=== PATIENT | female | born 1965 | race African-American/Black ===

== ENCOUNTER → 2016-12-31 | Outpatient (CLI) | payer OTHER ==
--- NOTE | 2017-01-01 02:16 | REP ---
Clinical: Neuralgia. Technique: AP, lateral, bilateral oblique, and coned-down views. Findings: Alignment and lordosis is maintained. The vertebral bodies including transverse process and spinous processes are intact and normal. There is no evidence for acute fracture / compression injury or subluxation. No evidence for spondylolysis or spondylolisthesis. No significant degenerative change is noted. Impression: Normal lumbosacral spine radiograph series. Signed by Robert Monroy MD 01/01/2017 02:09 A
--- NOTE | 2017-01-01 02:26 | REP ---
Clinical: Occipital neuralgia. Technique: AP, lateral, flexion/extension, bilateral oblique, and open-mouth views. Findings: Alignment and lordosis is maintained. There is no evidence for acute fracture / compression injury or subluxation. Moderate multilevel degenerative changes including anterior spurring/osteophytosis, endplate sclerosis and disc space narrowing primarily involving the C5-6, C4-5, and C6-7 levels. Oblique views demonstrate patent neural foramen. Open mouth view demonstrates normal C1-C2 articulation and odontoid process. Impression: Moderate multilevel degenerative changes. Signed by Robert Monroy MD 01/01/2017 02:18 A
== END | disposition home or self-care (01) ==
LOC: M RAD 10:44
PROVIDERS: ATTEND Neurological Surgery
DX: M54.81 Occipital neuralgia (principal); M47.892 Other spondylosis, cervical region; M47.896 Other spondylosis, lumbar region

== ENCOUNTER 2017-01-18 20:53 | Emergency (ER) | payer OTHER ==
[2017-01-18] MEDS ORDERED: IPRATROPIUM 0.5MG/ALBUTEROL 2.5MG INH SOL UD 3ML (DUONEB)(J7620) As Ordered ONE (22:15)
[2017-01-18] MEDS ORDERED: IBUPROFEN 800 MG TAB As Ordered ONE (22:30)
--- NOTE | 2017-01-18 23:38 | EDDOCDS ---
Nurse's Notes [facility] Name: Evelin Hamilton Age: 51 yrs Sex: Female : 1965 Arrival Date: 01/18/2017 Time: 20:53 Bed PD Private MD: Robert Caro Diagnosis: Acute bronchitis;Asthma Presentation: 01/18 21:14 Presenting complaint: Patient states: Sinus pain and pressure, cough, shortness of lf1 breath with stiff neck and back for two weeks. Was seen in [place] ED and reports that she is still having the same symptoms. Has been on an inhaler and antibiotics. Pt states she is not having cold and flu symptoms and refuses to wear a mask. Adult Sepsis Screening: The patient does not have new or worsening altered mentation. Patient's respiratory rate is less than 22. Systolic blood pressure is greater than 100. Patient has a qSOFA score of 0- Negative Sepsis Screen. Suicide/Homicide risk assessment- the patient denies having any suicidal and/or homicidal ideations and does not present with any other emotional, behavioral or mental health complaints. Status: Patient is not a equipment services associate or dependent. Transition of care: patient was not received from another setting of care. 21:14 Acuity: CAROLYN Level 4 lf1 21:14 Method Of Arrival: Walkin/Carried/Asstd lf1 Triage Assessment: 21:24 General: Appears uncomfortable, Behavior is restless. Pain: Location: neck, back Pain lf1 currently is 6 out of 10 on a pain scale. Neurological: Level of Consciousness is awake, alert. Respiratory: Respiratory effort is even, unlabored, Reports shortness of breath cough that is. GI: Denies nausea, vomiting. Derm: Skin is normal. 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 amoxicillin 875 mg Oral tab 1 tab every 12 hours (Last dose: 01/18/2017) 2. Tessalon Perles 100 mg Oral cap 1 cap 3 times per day 3. advair inhaler pt reports she is using it five times a day because she doesn't have her regular inhaler 4. Hydrochlorothiazide Unknown Oral 5. Gabapentin Oral Unknown 6. ventolin inhaler - PMHx: Hypertension; Asthma; Bronchitis; arm pain; - PSHx: none; - Social history: Smoking status: Patient states former smoker of tobacco. No barriers to communication noted, The patient speaks fluent Albanian, Speaks appropriately for age, Preferred Language: Albanian. - Family history: Not pertinent. - : The pt / caregiver states he / she is not on anticoagulants. Unable to Verify Home Med List with the patient / caregiver. Note Pt agitated in triage, does not want to give meds or history. - Exposure Risk Screening:: None identified. Screenin:37 Screening information is obtained from the patient. Fall risk: No risks identified. cz Assistance ADL's: requires no assistance with activities of daily living. Abuse/DV Screen: The patient / caregiver reports he/she is: not in a situation that causes fear, pain or injury. Nutritional screening: No deficits noted. home support is adequate. Assessment: 22:32 Adult Sepsis Screening: The patient does not have new or worsening altered mentation. dsf Patient's respiratory rate is less than 22. Systolic blood pressure is greater than 100. Patient has a qSOFA score of 0- Negative Sepsis Screen. General: Appears in no apparent distress, comfortable, Behavior is appropriate for age, cooperative. Neurological: Level of Consciousness is awake, alert. Cardiovascular: Capillary refill < 3 seconds. Respiratory: Airway is patent Respiratory effort is even, unlabored, Respiratory pattern is regular, symmetrical. Derm: Skin is pink, warm & dry. Vital Signs: 20:56 BP 168 / 88; Pulse 83; Resp 19; Temp 97.2(O); Pulse Ox 99% on R/A; Weight 92.53 kg (R); lr2 Height 5 ft. 4 in. (162.56 cm) (R); Pain 10/10; 23:36 BP 158 / 96; Pulse 96; Resp 16; Temp 96(T); Pulse Ox 96% on R/A; cz 20:56 Body Mass Index 35.02 (92.53 kg, 162.56 cm) lr2 Vitals: 20:56 Log In Time: January 18, 2017 at 20:53. lr2 ED Course: 20:55 Patient visited by Marylin Denise. lr2 20:55 Patient moved to Waiting lr2 20:57 Robert Caro is Private Physician. lr2 20:57 Patient moved to Pre RCE lr2 21:19 Triage Initiated lf1 21:35 Patient moved to Triage 3 ar3 21:52 Shane Hinson PA is PHCP. mo1 21:52 Dima Coronado DO is Attending Physician. mo1 21:56 Patient visited by Shane Hinson PA. mo1 22:04 Patient moved to PD2 / dsf 22:32 Patient visited by Zeinab Johansen RN. dsf 23:29 Robert Caro is Referral Physician. mo1 23:29 [facility] Payment Agreement was scanned into [employer] and attached to record. zo 23:37 The patient / caregiver is instructed regarding the plan of care and ED course. cz 23:37 No IV's were initiated during this patient's visit. No procedures done that require cz assistance. Administered Medications: 22:19 Drug: Albuterol-Ipratropium 3 ml [ipratropium-albuterol 0.5 mg-3 mg(2.5 mg base)/3 mL lf2 nebulization soln (3 mL)] Route: Inhalation; 22:32 Drug: Ibuprofen 800 mg [ibuprofen 800 mg tablet (1 tabs)] Route: PO; dsf RT: 22:19 Initial Med Neb Given as ordered Patient was instructed and evaluated on procedure lf2 Patient tolerated procedure well without adverse effect. Oxygen is room air. Respiratory: Airway is patent Respiratory effort is even, unlabored, Respiratory pattern is regular symmetrical, Breath sounds are clear bilaterally. Breath sounds are diminished bilaterally. Reports shortness of breath on exertion. Order Results: There are currently no results for this order. Outcome: 23:29 Discharge ordered by Provider. mo1 23:37 Discharge Assessment: Patient awake, alert and oriented x 3. No cognitive and/or cz functional deficits noted. Patient verbalized understanding of disposition instructions. patient administered narcotics - no. The following High Risk Discharge criteria are identified: None. Discharged to home ambulatory. Condition: improved. Discharge instructions given to patient, Instructed on discharge instructions, follow up and referral plans. medication usage, Demonstrated understanding of instructions, medications, Pt was receptive of discharge instructions/ teaching. Prescriptions given X 2, Work note provided to patient. No special radiology studies were completed. Property :Personal belongings accompany Pt. 23:38 Patient left the ED. cz Signatures: Ifeanyi Reynoso RN RN cz Rosita Sage Lisa,RN RN lf1 Ashwini Lazaro, HEAT AND FROST INSULATOR HEAT AND FROST INSULATOR ar3 Zeinab Johansen,RN RN dsf Shane Hinson PA PA mo1 Ginger Brown,RT RT lf2 Marylin Denise lr2 MTDD
--- NOTE | 2017-01-18 23:38 | EDDOCDS ---
Physician Documentation [facility] Name: Evelin Hamilton Age: 51 yrs Sex: Female : 1965 Arrival Date: 01/18/2017 Time: 20:53 Bed PD Private MD: Robert Caro Disposition: 01/18/17 23:29 Discharged to Home/Self Care. Impression: Acute bronchitis, Asthma. - Condition is Stable. - Discharge Instructions: Acute Bronchitis, Asthma, Adult. - Prescriptions for Zithromax Z- Chema 250 mg Oral Tablet - take 1 tablet by ORAL route as directed for 5 days Day 1- take two tablets once. Day 2, 3, 4 , 5 take one tablet once daily.; 6 tablet. Albuterol Sulfate 90 mcg/actuation Inhalation HFA Aerosol Inhaler - inhale 2 puff by INHALATION route every 4 hours As needed; 1 Inhaler. - Work Release Form - 2 day, Medication Reconciliation, Local Pharmacy Hours form. - Follow up: Robert Caro; When: Call to arrange an appointment; Reason: Recheck today's complaints, Continuance of care. - Problem is new. - Symptoms have improved. Historical: - Allergies: No known drug Allergies; - Home Meds: 1. amoxicillin 875 mg Oral tab 1 tab every 12 hours (Last dose: 01/18/2017) 2. Tessalon Perles 100 mg Oral cap 1 cap 3 times per day 3. advair inhaler pt reports she is using it five times a day because she doesn't have her regular inhaler 4. Hydrochlorothiazide Unknown Oral 5. Gabapentin Oral Unknown 6. ventolin inhaler - PMHx: Hypertension; Asthma; Bronchitis; arm pain; - PSHx: none; - Social history: Smoking status: Patient states former smoker of tobacco. No barriers to communication noted, The patient speaks fluent Swedish, Speaks appropriately for age, Preferred Language: Swedish. - Family history: Not pertinent. - : The pt / caregiver states he / she is not on anticoagulants. Unable to Verify Home Med List with the patient / caregiver. Note Pt agitated in triage, does not want to give meds or history. - Exposure Risk Screening:: None identified. 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 4 in. (162.56 cm) (R); Pain 10/10; 23:36 BP 158 / 96; Pulse 96; Resp 16; Temp 96(T); Pulse Ox 96% on R/A; cz 20:56 Body Mass Index 35.02 (92.53 kg, 162.56 cm) lr2 MDM: 22:03 Albuterol-Ipratropium 3 ml Inhalation once ordered. mo1 22:03 Call Respiratory ordered. mo1 22:04 Chest, 2 View (pa\E\lat) Ordered. EDMS 22:04 Ibuprofen 800 mg PO once ordered. mo1 22:07 Call Respiratory complete. ar3 23:03 Financial registration complete. hs2 23:29 [facility] Payment Agreement was scanned into [employer] and attached to record. zo Administered Medications: 22:19 Drug: Albuterol-Ipratropium 3 ml [ipratropium-albuterol 0.5 mg-3 mg(2.5 mg base)/3 mL lf2 nebulization soln (3 mL)] Route: Inhalation; 22:32 Drug: Ibuprofen 800 mg [ibuprofen 800 mg tablet (1 tabs)] Route: PO; dsf Signatures: Dispatcher MedHost EDMS Ifeanyi Reynoso RN RN cz Rosita Sage LisaRN RN lf1 Ashwini Lazaro, FLIGHT OPERATIONS MANAGER FLIGHT OPERATIONS MANAGER ar3 Shane Hinson PA PA mo1 Chhaya Scherer, Reg Reg hs2 Zeinab Johansen RN dsf Ginger Brown RT lf2 The chart was reviewed and I authenticate all verbal orders and agree with the evaluation and treatment provided.Attachments: 23:29 [facility] Payment Agreement zo MTDD
--- NOTE | 2017-01-19 10:04 | REP ---
TWO VIEW CHEST: Two views of the chest are performed and compared to prior study of 05/15/2016. There is mild bibasilar fibrotic change without evidence of acute infiltrate or pulmonary edema. The heart is normal in size. The mediastinal silhouette is unremarkable and unchanged. There are mild degenerative changes of the spine. IMPRESSION: No acute pulmonary disease. Signed by Darian Childers MD 01/19/2017 04:52 P
--- NOTE | 2017-01-21 00:39 | EDDOCDS ---
Physician Documentation [facility] Name: Evelin Hamilton Age: 51 yrs Sex: Female : 1965 Arrival Date: 01/18/2017 Time: 20:53 Bed PD Private MD: Robert Caro Disposition: 01/18/17 23:29 Discharged to Home/Self Care. Impression: Acute bronchitis, Asthma. - Condition is Stable. - Discharge Instructions: Acute Bronchitis, Asthma, Adult. - Prescriptions for Zithromax Z- Chema 250 mg Oral Tablet - take 1 tablet by ORAL route as directed for 5 days Day 1- take two tablets once. Day 2, 3, 4 , 5 take one tablet once daily.; 6 tablet. Albuterol Sulfate 90 mcg/actuation Inhalation HFA Aerosol Inhaler - inhale 2 puff by INHALATION route every 4 hours As needed; 1 Inhaler. - Work Release Form - 2 day, Medication Reconciliation, Local Pharmacy Hours form. - Follow up: Robert Caro; When: Call to arrange an appointment; Reason: Recheck today's complaints, Continuance of care. - Problem is new. - Symptoms have improved. Historical: - Allergies: No known drug Allergies; - Home Meds: 1. amoxicillin 875 mg Oral tab 1 tab every 12 hours (Last dose: 01/18/2017) 2. Tessalon Perles 100 mg Oral cap 1 cap 3 times per day 3. advair inhaler pt reports she is using it five times a day because she doesn't have her regular inhaler 4. Hydrochlorothiazide Unknown Oral 5. Gabapentin Oral Unknown 6. ventolin inhaler - PMHx: Hypertension; Asthma; Bronchitis; arm pain; - PSHx: none; - Social history: Smoking status: Patient states former smoker of tobacco. No barriers to communication noted, The patient speaks fluent Greenlandic, Speaks appropriately for age, Preferred Language: Greenlandic. - Family history: Not pertinent. - : The pt / caregiver states he / she is not on anticoagulants. Unable to Verify Home Med List with the patient / caregiver. Note Pt agitated in triage, does not want to give meds or history. - Exposure Risk Screening:: None identified. 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 4 in. (162.56 cm) (R); Pain 10/10; 23:36 BP 158 / 96; Pulse 96; Resp 16; Temp 96(T); Pulse Ox 96% on R/A; cz 20:56 Body Mass Index 35.02 (92.53 kg, 162.56 cm) lr2 MDM: 22:03 Albuterol-Ipratropium 3 ml Inhalation once ordered. mo1 22:03 Call Respiratory ordered. mo1 22:04 Chest, 2 View (pa\E\lat) Ordered. EDMS 22:04 Ibuprofen 800 mg PO once ordered. mo1 22:07 Call Respiratory complete. ar3 23:03 Financial registration complete. hs2 23:29 [facility] Payment Agreement was scanned into [employer] and attached to record. zo Administered Medications: 22:19 Drug: Albuterol-Ipratropium 3 ml [ipratropium-albuterol 0.5 mg-3 mg(2.5 mg base)/3 mL lf2 nebulization soln (3 mL)] Route: Inhalation; 22:32 Drug: Ibuprofen 800 mg [ibuprofen 800 mg tablet (1 tabs)] Route: PO; dsf Signatures: Dispatcher MedHost EDMS Ifeanyi Reynoso RN RN cz Rosita Sage LisaRN RN lf1 Ashwini Lazaro, SOYBEAN GROWER SOYBEAN GROWER ar3 Shane Hinson PA PA mo1 Chhaya Scherer, Reg Reg hs2 Zeinab Johansen RN dsf Ginger Brown RT lf2 The chart was reviewed and I authenticate all verbal orders and agree with the evaluation and treatment provided.Attachments: 23:29 [facility] Payment Agreement zo Chart Complete MTDD
--- NOTE | 2017-01-21 00:39 | EDDOCDS ---
Nurse's Notes [facility] Name: Evelin Hamilton Age: 51 yrs Sex: Female : 1965 Arrival Date: 01/18/2017 Time: 20:53 Bed PD Private MD: Robert Caro Diagnosis: Acute bronchitis;Asthma Presentation: 01/18 21:14 Presenting complaint: Patient states: Sinus pain and pressure, cough, shortness of lf1 breath with stiff neck and back for two weeks. Was seen in [place] ED and reports that she is still having the same symptoms. Has been on an inhaler and antibiotics. Pt states she is not having cold and flu symptoms and refuses to wear a mask. Adult Sepsis Screening: The patient does not have new or worsening altered mentation. Patient's respiratory rate is less than 22. Systolic blood pressure is greater than 100. Patient has a qSOFA score of 0- Negative Sepsis Screen. Suicide/Homicide risk assessment- the patient denies having any suicidal and/or homicidal ideations and does not present with any other emotional, behavioral or mental health complaints. Status: Patient is not a environmental service aide or dependent. Transition of care: patient was not received from another setting of care. 21:14 Acuity: CAROLYN Level 4 lf1 21:14 Method Of Arrival: Walkin/Carried/Asstd lf1 Triage Assessment: 21:24 General: Appears uncomfortable, Behavior is restless. Pain: Location: neck, back Pain lf1 currently is 6 out of 10 on a pain scale. Neurological: Level of Consciousness is awake, alert. Respiratory: Respiratory effort is even, unlabored, Reports shortness of breath cough that is. GI: Denies nausea, vomiting. Derm: Skin is normal. 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 amoxicillin 875 mg Oral tab 1 tab every 12 hours (Last dose: 01/18/2017) 2. Tessalon Perles 100 mg Oral cap 1 cap 3 times per day 3. advair inhaler pt reports she is using it five times a day because she doesn't have her regular inhaler 4. Hydrochlorothiazide Unknown Oral 5. Gabapentin Oral Unknown 6. ventolin inhaler - PMHx: Hypertension; Asthma; Bronchitis; arm pain; - PSHx: none; - Social history: Smoking status: Patient states former smoker of tobacco. No barriers to communication noted, The patient speaks fluent Namibian, Speaks appropriately for age, Preferred Language: Namibian. - Family history: Not pertinent. - : The pt / caregiver states he / she is not on anticoagulants. Unable to Verify Home Med List with the patient / caregiver. Note Pt agitated in triage, does not want to give meds or history. - Exposure Risk Screening:: None identified. Screenin:37 Screening information is obtained from the patient. Fall risk: No risks identified. cz Assistance ADL's: requires no assistance with activities of daily living. Abuse/DV Screen: The patient / caregiver reports he/she is: not in a situation that causes fear, pain or injury. Nutritional screening: No deficits noted. home support is adequate. Assessment: 22:32 Adult Sepsis Screening: The patient does not have new or worsening altered mentation. dsf Patient's respiratory rate is less than 22. Systolic blood pressure is greater than 100. Patient has a qSOFA score of 0- Negative Sepsis Screen. General: Appears in no apparent distress, comfortable, Behavior is appropriate for age, cooperative. Neurological: Level of Consciousness is awake, alert. Cardiovascular: Capillary refill < 3 seconds. Respiratory: Airway is patent Respiratory effort is even, unlabored, Respiratory pattern is regular, symmetrical. Derm: Skin is pink, warm & dry. Vital Signs: 20:56 BP 168 / 88; Pulse 83; Resp 19; Temp 97.2(O); Pulse Ox 99% on R/A; Weight 92.53 kg (R); lr2 Height 5 ft. 4 in. (162.56 cm) (R); Pain 10/10; 23:36 BP 158 / 96; Pulse 96; Resp 16; Temp 96(T); Pulse Ox 96% on R/A; cz 20:56 Body Mass Index 35.02 (92.53 kg, 162.56 cm) lr2 Vitals: 20:56 Log In Time: January 18, 2017 at 20:53. lr2 ED Course: 20:55 Patient visited by Marylin Denise. lr2 20:55 Patient moved to Waiting lr2 20:57 Robert Caro is Private Physician. lr2 20:57 Patient moved to Pre RCE lr2 21:19 Triage Initiated lf1 21:35 Patient moved to Triage 3 ar3 21:52 Shane Hinson PA is PHCP. mo1 21:52 Dima Coronado DO is Attending Physician. mo1 21:56 Patient visited by Shane Hinson PA. mo1 22:04 Patient moved to PD dsf 22:32 Patient visited by Zeinab Johansen RN. dsf 23:29 Robert Caro is Referral Physician. mo1 23:29 [facility] Payment Agreement was scanned into [employer] and attached to record. zo 23:37 The patient / caregiver is instructed regarding the plan of care and ED course. cz 23:37 No IV's were initiated during this patient's visit. No procedures done that require cz assistance. 01/19 10:42 Chest, 2 View (pa\E\lat) Returned. EDMS Administered Medications: 01/18 22:19 Drug: Albuterol-Ipratropium 3 ml [ipratropium-albuterol 0.5 mg-3 mg(2.5 mg base)/3 mL lf2 nebulization soln (3 mL)] Route: Inhalation; 22:32 Drug: Ibuprofen 800 mg [ibuprofen 800 mg tablet (1 tabs)] Route: PO; dsf RT: 22:19 Initial Med Neb Given as ordered Patient was instructed and evaluated on procedure lf2 Patient tolerated procedure well without adverse effect. Oxygen is room air. Respiratory: Airway is patent Respiratory effort is even, unlabored, Respiratory pattern is regular symmetrical, Breath sounds are clear bilaterally. Breath sounds are diminished bilaterally. Reports shortness of breath on exertion. Order Results: Radiology Order: Chest, 2 View (pa\E\lat) Test: Chest, 2 View (pa\E\lat) REASON FOR EXAMINATION: Cough; TWO VIEW CHEST:; ; Two views of the chest are performed and compared to prior study of 05/15/2016.; There is mild bibasilar fibrotic change without evidence of acute infiltrate or; pulmonary edema. The heart is normal in size. The mediastinal silhouette is; unremarkable and unchanged. There are mild degenerative changes of the spine.; ; IMPRESSION:; ; No acute pulmonary disease.; ; ; Signed by; Darian Childers MD 01/19/2017 04:52 P; Outcome: 23:29 Discharge ordered by Provider. mo1 23:37 Discharge Assessment: Patient awake, alert and oriented x 3. No cognitive and/or cz functional deficits noted. Patient verbalized understanding of disposition instructions. patient administered narcotics - no. The following High Risk Discharge criteria are identified: None. Discharged to home ambulatory. Condition: improved. Discharge instructions given to patient, Instructed on discharge instructions, follow up and referral plans. medication usage, Demonstrated understanding of instructions, medications, Pt was receptive of discharge instructions/ teaching. Prescriptions given X 2, Work note provided to patient. No special radiology studies were completed. Property :Personal belongings accompany Pt. 23:38 Patient left the ED. cz Signatures: Dispatcher MedHost EDMS Ifeanyi Reynoso RN RN Rosita Castillo Lisa, RN RN lf1 Ashwini Lazaro, ENGINEERING MATHEMATICIAN ENGINEERING MATHEMATICIAN ar3 Zeinab JohansenRN RN dsf Shane Hinson, FARRUKH PA mo1 Ginger Brown,RT RT lf2 Marylin Denise lr2 Chart Complete ÁNGEL
--- NOTE | 2017-01-21 00:39 | EDDOCDS ---
Physician Documentation [facility] Name: Evelin Hamilton Age: 51 yrs Sex: Female : 1965 Arrival Date: 01/18/2017 Time: 20:53 Bed PD Private MD: Robert Caro Disposition: 01/18/17 23:29 Discharged to Home/Self Care. Impression: Acute bronchitis, Asthma. - Condition is Stable. - Discharge Instructions: Acute Bronchitis, Asthma, Adult. - Prescriptions for Zithromax Z- Chema 250 mg Oral Tablet - take 1 tablet by ORAL route as directed for 5 days Day 1- take two tablets once. Day 2, 3, 4 , 5 take one tablet once daily.; 6 tablet. Albuterol Sulfate 90 mcg/actuation Inhalation HFA Aerosol Inhaler - inhale 2 puff by INHALATION route every 4 hours As needed; 1 Inhaler. - Work Release Form - 2 day, Medication Reconciliation, Local Pharmacy Hours form. - Follow up: Robert Caro; When: Call to arrange an appointment; Reason: Recheck today's complaints, Continuance of care. - Problem is new. - Symptoms have improved. Historical: - Allergies: No known drug Allergies; - Home Meds: 1. amoxicillin 875 mg Oral tab 1 tab every 12 hours (Last dose: 01/18/2017) 2. Tessalon Perles 100 mg Oral cap 1 cap 3 times per day 3. advair inhaler pt reports she is using it five times a day because she doesn't have her regular inhaler 4. Hydrochlorothiazide Unknown Oral 5. Gabapentin Oral Unknown 6. ventolin inhaler - PMHx: Hypertension; Asthma; Bronchitis; arm pain; - PSHx: none; - Social history: Smoking status: Patient states former smoker of tobacco. No barriers to communication noted, The patient speaks fluent Korean, Speaks appropriately for age, Preferred Language: Korean. - Family history: Not pertinent. - : The pt / caregiver states he / she is not on anticoagulants. Unable to Verify Home Med List with the patient / caregiver. Note Pt agitated in triage, does not want to give meds or history. - Exposure Risk Screening:: None identified. 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 4 in. (162.56 cm) (R); Pain 10/10; 23:36 BP 158 / 96; Pulse 96; Resp 16; Temp 96(T); Pulse Ox 96% on R/A; cz 20:56 Body Mass Index 35.02 (92.53 kg, 162.56 cm) lr2 MDM: 22:03 Albuterol-Ipratropium 3 ml Inhalation once ordered. mo1 22:03 Call Respiratory ordered. mo1 22:04 Chest, 2 View (pa\E\lat) Ordered. EDMS 22:04 Ibuprofen 800 mg PO once ordered. mo1 22:07 Call Respiratory complete. ar3 23:03 Financial registration complete. hs2 23:29 [facility] Payment Agreement was scanned into [employer] and attached to record. zo Administered Medications: 22:19 Drug: Albuterol-Ipratropium 3 ml [ipratropium-albuterol 0.5 mg-3 mg(2.5 mg base)/3 mL lf2 nebulization soln (3 mL)] Route: Inhalation; 22:32 Drug: Ibuprofen 800 mg [ibuprofen 800 mg tablet (1 tabs)] Route: PO; dsf Signatures: Dispatcher [employer] EDMS Ifeanyi Reynoso RN RN cz Rosita Sage LisaRN RN lf1 Ashwini Lazaro, CATH LAB CATH LAB ar3 Shane Hinson PA PA mo1 Chhaya Scherer, Reg Reg hs2 Zeinab Johansen RN dsf Ginger Brown RT lf2 The chart was reviewed and I authenticate all verbal orders and agree with the evaluation and treatment provided.Attachments: 23:29 [facility] Payment Agreement zo Chart Complete MTDD
== END 2017-01-18 23:38 | disposition home or self-care (01) ==
LOC: M ED 20:53
DX: J45.901 Unspecified asthma with (acute) exacerbation (principal); J20.9 Acute bronchitis, unspecified; I10 Essential (primary) hypertension; Z87.891 Personal history of nicotine dependence; Z79.899 Other long term (current) drug therapy

== ENCOUNTER → 2017-02-02 | Outpatient (REF) | payer OTHER | LOC: M SFHCLERA 11:10 | PROVIDERS: ATTEND Family Medicine | DX: Z11.1 Encounter for screening for respiratory tuberculosis (principal) ==

== ENCOUNTER 2017-02-20 22:58 | Emergency (ER) | payer OTHER ==
[~2017-02-20] VITALS: Ht 162.6 cm; Wt 90.7 kg
[2017-02-20] MEDS ORDERED: AMLODIPINE (23:25)
[2017-02-20] MEDS ORDERED: HYDR12.55 (23:25)
[2017-02-20] MEDS ORDERED: ALBU17IN (23:25)
[2017-02-20] MEDS ORDERED: GABA600T PO (23:25)
[2017-02-20] MEDS ORDERED: PROBCAP4 PO (23:25)
[2017-02-20] MEDS ORDERED: ADV250INH (23:25)
[2017-02-20] MEDS ORDERED: methylPREDNISolone INJ 125 MG/2 ML VIAL (J2930) IV ONE (23:30)
[2017-02-20] MEDS ORDERED: NS 500 ML IV ONE (23:30)
[2017-02-20] MEDS ORDERED: FAMOTIDINE IV BAG 20 MG in APPROPRIATE DILUENT 1 EA IV ONE (23:30)
[2017-02-20] MEDS ORDERED: diphenhydrAMINE INJ 50MG/ML VIAL (J1200) IV ONE (23:30)
[2017-02-20] MEDS ORDERED: ASPIRIN 81 MG CHEW TABLET PO ONE (23:30)
[2017-02-20 23:44] LABS: BASO % 0.3 % (0.0-1.0); EOS # 0.3 K/mm3 (0.0-0.50); EOS % 3.6 % (0.0-3.0); LARGE UNSTAINED CELL # 0.1 K/mm3 (0.0-0.4); LARGE UNSTAINED CELL % 1.6 % (0.0-4.0); LYMPH # 2.5 K/mm3 (1.5-4.5); LYMPH % 30.9 % (24.0-44.0); MEAN CORPUSCULAR HEMOGLOBIN 29.1 pg (27.0-33.0); MEAN CORPUSCULAR VOLUME 90.9 fl (80.0-96.0); MONO # 0.4 K/mm3 (0.0-0.8); MONO % 4.9 % (0.0-5.0); NEUTROPHILS # 4.6 K/mm3 (1.8-7.7); NEUTROPHILS % 58.8 % (36.0-66.0); PLATELET COUNT, AUTOMATED 301 k/mm3 (150-450); RED CELL DISTRIBUTION WIDTH 13.4 % (11.5-14.5); WHITE BLOOD COUNT 7.7 K/mm3 (4.0-10.0)
[2017-02-20 23:53] LABS: ANION GAP 5 MEQ/L (8-16); BLOOD UREA NITROGEN 17 MG/DL (7-18); CALCIUM LEVEL 9.3 MG/DL (8.5-10.1); CARBON DIOXIDE LEVEL 33 MEQ/L (21-32); CHLORIDE LEVEL 104 MEQ/L (98-107); CREATININE FOR GFR 0.92 MG/DL (0.55-1.02); GLOMERULAR FILTRATION RATE > 60.0 (>51); GLUCOSE, FASTING 103 MG/DL (70-105); POTASSIUM SERUM 3.5 MEQ/L (3.5-5.1); SODIUM LEVEL 142 MEQ/L (136-145)
[2017-02-21] MEDS ORDERED: IPRATROPIUM 0.5MG/ALBUTEROL 2.5MG INH SOL UD 3ML (DUONEB)(J7620) NEB ONE (00:15)
[2017-02-21] MEDS ORDERED: PRED20TA PO (01:19)
[2017-02-21 01:32] VITALS: BP 148/75
--- NOTE | 2017-02-21 07:22 | ECGEPIP ---
Stationary ECG Study [facility] - ED Test Date: 2017-02-20 Pat Name: PHILLIP HAYES Department: Room: - Gender: F [employer] Principal: AlvarezB: 1965 Requested By: AMILCAR Villa Order Number: [id number] Reading MD: Hilario Hubbard Measurements Intervals [place] Rate: 80 P: 59 DE: 167 QRS: 58 QRSD: 94 T: 62 QT: 379 QTc: 437 Interpretive Statements SINUS RHYTHM MINIMAL VOLTAGE CRITERIA FOR LVH, CONSIDER NORMAL VARIANT NO PRIORS Electronically Signed On 02-21-2017 7:22:32 EDT by Hilario Hubbard
--- NOTE | 2017-02-21 08:03 | REP ---
Clinical: Chest pain . Comparison: 01/18/2017 . Findings: The mediastinum and cardiac silhouette are stable and within normal limits for portable technique. The lung patel are clear without acute consolidation, effusion, or pneumothorax. Skeletal structures are intact. Impression: Normal portable chest x-ray Signed by Robert Monroy MD 02/21/2017 07:54 A
== END 2017-02-21 01:45 | disposition home or self-care (01) ==
LOC: M ED 23:14
DX: T78.1XXA Other adverse food reactions, not elsewhere classified, initial encounter (principal); X58.XXXA Exposure to other specified factors, initial encounter; Y92.89 Other specified places as the place of occurrence of the external cause; Y93.89 Activity, other specified; Y99.8 Other external cause status; D86.0 Sarcoidosis of lung; Z79.899 Other long term (current) drug therapy

== ENCOUNTER 2017-02-25 19:17 | Emergency (ER) | payer OTHER ==
[~2017-02-25] VITALS: Ht 162.6 cm; Wt 90.7 kg
[~2017-02-25 19:17] MED LIST: ADV250INH; ALBU17IN; AMLODIPINE; GABA600T PO; HYDR12.55; PRED20TA PO; PROBCAP4 PO
[2017-02-25 19:23] VITALS: BP 135/82
[2017-02-25] MEDS ORDERED: KETOROLAC 60 MG/2 ML VIAL (J1885) IM ONE (20:45)
--- NOTE | 2017-02-25 21:50 | REPUSA ---
Clinical history: possible hernia. Findings: Real-time ultrasound imaging of the left lower quadrant abdominal wall was performed. There is no evidence of a hernia. Normal heterogeneous fibroglandular tissue is noted. No focal defined ma ss or cystic lesion is appreciated. No evidence of calcifications are appreciated. No other gross abn ormalities. Impression: Unremarkable ultrasound examination. No evidence of a hernia.
[2017-02-25] MEDS ORDERED: PRED20TA PO (23:17)
== END 2017-02-26 00:02 | disposition home or self-care (01) ==
LOC: M ED 22:18
DX: M54.30 Sciatica, unspecified side (principal); R10.31 Right lower quadrant pain; G57.01 Lesion of sciatic nerve, right lower limb; Z79.52 Long term (current) use of systemic steroids; Z79.899 Other long term (current) drug therapy; I10 Essential (primary) hypertension; J45.909 Unspecified asthma, uncomplicated

== ENCOUNTER 2017-03-12 13:07 | Emergency (ER) | payer OTHER ==
[~2017-03-12] VITALS: Ht 162.6 cm; Wt 89.4 kg
[2017-03-12] MEDS ORDERED: GABA600T PO (13:20)
[2017-03-12] MEDS ORDERED: IBUPROFEN 600 MG TAB PO ONE (13:30)
[2017-03-12] MEDS ORDERED: NAPR500T PO (14:03)
--- NOTE | 2017-03-12 14:06 | REP ---
RIGHT ELBOW SERIES: Two views. HISTORY: Trauma. FINDINGS: AP and lateral views of the right elbow demonstrate osteoarthritic spurring affecting the ulnar trochlear articulation. There is also lateral epicondylar spurring. There is no evidence of fracture or joint effusion. IMPRESSION: No fracture seen. Ulno-trochlear osteoarthritis. Lateral epicondylar spurring. Signed by Sid Payne MD 03/12/2017 05:00 P
--- NOTE | 2017-03-12 14:07 | REP ---
LEFT KNEE SERIES: Four views. [place] not included. HISTORY: Trauma. FINDINGS: Four views of the left knee demonstrate medial and patellofemoral joint space narrowing and spur formation consistent with osteoarthritis. There is also nonarticular spurring at the superior and inferior pole patella at the quadriceps and patellar tendon insertion sites. No fracture or subluxation is seen. IMPRESSION: Osteoarthritis and patellar spurring. No fracture seen. Signed by Sid Payne MD 03/12/2017 05:01 P
[2017-03-12 14:25] VITALS: BP 137/84
== END 2017-03-12 14:27 | disposition home or self-care (01) ==
LOC: EDBD 13:07 → M ED 14:10
DX: S80.01XA Contusion of right knee, initial encounter (principal); S80.02XA Contusion of left knee, initial encounter; S50.01XA Contusion of right elbow, initial encounter; V43.52XA Car driver injured in collision with other type car in traffic accident, initial encounter; Y92.410 Unspecified street and highway as the place of occurrence of the external cause; I10 Essential (primary) hypertension; Z87.891 Personal history of nicotine dependence; Z79.899 Other long term (current) drug therapy; Z79.51 Long term (current) use of inhaled steroids

== ENCOUNTER → 2017-09-08 | Outpatient (CLI) | payer OTHER ==
[~2017-09-08] MED LIST changes: +NAPR500T PO
--- NOTE | 2017-09-08 16:38 | REP ---
MAXILLOFACIAL CT WITHOUT CONTRAST: HISTORY: Chronic pansinusitis. Mucosal thickening is present in the sinuses. There is complete opacification of the right frontal sinus. There is almost complete opacification of the ethmoid sinuses. Mild mucosal thickening is present in the maxillary, sphenoid and left frontal sinuses. Mucosal thickening involves the osteomeatal units. The middle and inferior nasal turbinates are partially paradoxical. There is minimal deviation of the nasal septum to the left. A spur is present arising from the left side of the nasal septum. The cribriform plate, medial ryder of the orbits and optic canals are intact. The carotid canals form a segment of the postero lateral ryder of the sphenoid sinus. IMPRESSION:Sinus mucosal thickening as described above. Signed by Junior Matos MD 09/08/2017 04:43 P
== END ==
LOC: M RAD 15:57
PROVIDERS: ATTEND Otolaryngology
DX: J32.4 Chronic pansinusitis (principal)